=== PATIENT | female | born 1980 | race Caucasian/White ===

== ENCOUNTER 2018-01-07 18:01 | Emergency (ER) | payer MEDICARE, OTHER ==
[2018-01-07 18:36] VITALS: BP 110/71; PULSE 72; RESP 18; TEMP 98.5; O2SAT 99
--- NOTE | 2018-01-07 18:50 | ED PDOC ---
HPI: Trauma/Fall - HPI Time Seen by Provider: 01/07/18 18:45 Chief Complaint (Nursing): Trauma Chief Complaint (Provider): back pain History Per: Patient History/Exam Limitations: other (used seismic interpreter for sign language) Onset/Duration Of Symptoms: Hrs (today) Additional Complaint(s): Ilia Fonseca, a 37 year old female with no significant past medical history , presents to the emergency department with back pain onset today. An seismic interpreter was used and said the patient says she slipped on water and fell on her tail bone. The patient pointed to her lower coccyx region and the seismic interpreter states the patient is currently menstruating. Patient denies any head injury or taking medication. No further medical complaints. Past Medical History Reviewed: Historical Data, Nursing Documentation, Vital Signs Vital Signs: Last Vital Signs Temp 98.5 F 01/07/18 18:30 Pulse 72 01/07/18 18:30 Resp 18 01/07/18 18:30 BP 110/71 01/07/18 18:30 Pulse Ox 99 01/07/18 18:30 - Medical History PMH: Asthma Denies: Chronic Kidney Disease - Surgical History Surgical History: - Family History Family History: States: Unknown Family Hx - Immunization History Hx Tetanus Toxoid Vaccination: No - Home Medications Home Medications: Ambulatory Orders Medication Instructions Recorded Albuterol HFA [Ventolin HFA 90 1 - 2 puff IH Q4H PRN #1 bottle 06/10/16 mcg/actuation (8 g)] Azithromycin [Zithromax] 250 mg PO DAILY #6 tab 06/10/16 Docusate Sodium [Colace] 100 mg PO BID #20 capsule 01/07/18 Ibuprofen [Motrin] 600 mg PO Q8 PRN #21 tab 01/07/18 - Allergies Allergies/Adverse Reactions: Allergies Allergy/AdvReac Type Severity Reaction Status Date / Time No Known Allergies Allergy Verified 01/07/18 18:30 Review of Systems ROS Statement: Except As Marked, All Systems Reviewed And Found Negative Musculoskeletal: Positive for: Back Pain Physical Exam - Reviewed Nursing Documentation Reviewed: Yes Vital Signs Reviewed: Yes - Physical Exam Appears: Positive for: Well, Non-toxic, No Acute Distress Head Exam: Positive for: ATRAUMATIC, NORMAL INSPECTION, NORMOCEPHALIC Back: Negative for: Vertebral Tenderness - ECG O2 Sat by Pulse Oximetry: 99 (RA) Pulse Ox Interpretation: Normal - Progress ED Course And Treament: SACRUM & COCCYX: NO FX MOTRIN 600MG X 1 DOSE Medical Decision Making Medical Decision Making: Time: 18:45 Initial Impression: back pain following a fall Initial Plan: --ED urine --Motrin 600 mg PO --Radiology Scribe Attestation: Documented by Anabel Mcgee, acting as a scribe for Sergio Low PA-C. Provider Scribe Attestation: All medical record entries made by the Scribe were at my direction and personally dictated by me. I have reviewed the chart and agree that the record accurately reflects my personal performance of the history, physical exam, medical decision making, and the department course for this patient. I have also personally directed, reviewed, and agree with the discharge instructions and disposition. Disposition - Clinical Impression Clinical Impression: Tailbone injury - Patient ED Disposition Is Patient to be Admitted: No - Disposition Referrals: [facility] [Outside] Disposition: Routine/Home Disposition Time: 20:10 Condition: FAIR Prescriptions: Docusate Sodium [Colace] 100 mg PO BID #20 capsule Ibuprofen [Motrin] 600 mg PO Q8 PRN #21 tab PRN Reason: Pain, Moderate (4-7) Instructions: Coccyx Injury (DC)
--- NOTE | 2018-01-08 09:02 | RAD ---
Date of service: 01/07/2018 HISTORY: tailbone injury COMPARISON: No prior FINDINGS: BONES: Normal. No fracture. JOINTS: Normal. No osteoarthritis. SOFT TISSUE: Normal. OTHER FINDINGS: None . IMPRESSION: Normal Bone Xray.
== END 2018-01-07 20:42 | disposition home or self-care (01) ==
LOC: H.ER 18:01
DX: S39.92XA Unspecified injury of lower back, initial encounter (principal); W19.XXXA Unspecified fall, initial encounter; Y92.89 Other specified places as the place of occurrence of the external cause